=== PATIENT | male | born 2000 | race Hispanic/Latino ===

== ENCOUNTER 2020-06-06 17:10 | Emergency (ER) | payer SELFPAY ==
[~2020-06-06] VITALS: Ht 180.3 cm; Wt 99.8 kg
[2020-06-06] MEDS ORDERED: CEFTRIAXONE SOD 1 GM VIAL IM ONE (17:30)
[2020-06-06] MEDS ORDERED: METRONIDAZOLE 500 MG TAB PO ONE (17:30)
[2020-06-06] MEDS ORDERED: LIDOCAINE HCL 1% 2 ML AMP ONE (17:36)
== END 2020-06-06 17:57 | disposition home or self-care (01) ==
LOC: ER 17:15
DX: A64 Unspecified sexually transmitted disease (principal); N34.2 Other urethritis; F17.210 Nicotine dependence, cigarettes, uncomplicated
CPT/HCPCS: 99283; J0696; J2001